=== PATIENT | male | born 1990 | race African-American/Black ===

== ENCOUNTER 2019-04-24 15:05 | Emergency (ER) | payer OTHER ==
[~2019-04-24] VITALS: Ht 172.7 cm; Wt 83.9 kg
[2019-04-24] MEDS ORDERED: NKM (15:26)
[2019-04-24 15:40] VITALS: BP 140/90
--- NOTE | 2019-04-24 15:40 | NUR ---
ED Nurse Note: pt came in due to laceration on right 5th digit and almost syncope x3 happend at 12nn. pt stated he was lifting a rim and fell down on his finger and when he saw blood he alost fainted x 3. seen by kendal de la torre. ill continue to monitor.
--- NOTE | 2019-04-24 15:50 | NUR ---
ED Nurse Note: wound cleansed with ns, iv started on pt left ac, blood drawn and sent to lab, pt able to give urine sample, ivf started. pt vss. will continue to monitor.
[2019-04-24 16:08] LABS: APPEARANCE,URINE CLEAR; BILIRUBIN, URINE NEGATIVE (NEGATIVE); COLOR,URINE PALE YELLOW; GLUCOSE, URINE (UA) NEGATIVE (NEGATIVE); KETONES,URINE NEGATIVE (NEGATIVE); LEUKOCYTE ESTERASE ,URINE NEGATIVE (NEGATIVE); NITRITE,URINE NEGATIVE (NEGATIVE); PH,URINE 8 (4.5-8.0); PROTEIN,URINE NEGATIVE (NEGATIVE); UROBILINOGEN,URINE NORMAL MG/DL (0.0-1.0)
[2019-04-24 16:10] LABS: ANION GAP 7 mmol/L (5-15); BLOOD UREA NITROGEN 13 mg/dL (7-18); CALCIUM 9.2 MG/DL (8.5-10.1); CARBON DIOXIDE 31 MMOL/L (21-32); CHLORIDE 103 MMOL/L (98-107); CREATININE 1.1 MG/DL (0.55-1.30); POTASSIUM 4.3 MMOL/L (3.5-5.1); SODIUM 141 MMOL/L (136-145)
[2019-04-24 16:12] LABS: BASOPHILS % (AUTO) 1.1 % (0.0-2.0); EOSINOPHILS % (AUTO) 0.4 % (0.0-3.0); HEMATOCRIT 48.1 % (42.0-52.0); HEMOGLOBIN 16.5 G/DL (14.2-18.0); LYMPHOCYTES % (AUTO) 20.9 % (20.0-45.0); MEAN CORPUSCULAR VOLUME 83 FL (80-99); NEUTROPHILS % (AUTO) 71.5 % (45.0-75.0); PLATELET COUNT 367 K/UL (150-450); RED CELL DISTRIBUTION WIDTH 10.7 % (11.6-14.8); WHITE BLOOD COUNT 8.9 K/UL (4.8-10.8)
[2019-04-24 16:26] LABS: ALANINE AMINOTRANSFERASE 73 U/L (12-78); ALBUMIN 4.9 G/DL (3.4-5.0); ALBUMIN/GLOBULIN RATIO 1.5 (1.0-2.7); ALKALINE PHOSPHATASE 63 U/L (46-116); ASPARTATE AMINO TRANSFERASE 29 U/L (15-37); BILIRUBIN,TOTAL 1.2 MG/DL (0.2-1.0); CKMB 0.7 NG/ML (0.0-3.6); CREATINE KINASE 244 U/L (26-308)
[2019-04-24 16:30] LABS: BILIRUBIN,DIRECT 0.2 MG/DL (0.0-0.3)
[2019-04-24 17:41] VITALS: BP 136/88
--- NOTE | 2019-04-24 18:04 | Emergency Room Report ---
History of Present Illness General Chief Complaint: Syncope Source: Patient (Maxi Bhakta) Present Illness HPI 28-year-old male with no significant past medical history here complaining of pain and bleeding from his chills after he smashed his finger at work. [place] faint and almost fell after injury however denies any preceding dizziness, headache, chest pain, shortness of breath, palpitation prior to the injury and leading to syncope prior to being injured. Patient denies head trauma no loss of consciousness and said that he was stopped from falling by his coworker. Denies any medication intake, drug use, alcohol intake. Patient reports that he keeps hydrated at work. Rating his pain in his finger 3 out of 10 without radiation. Patient has had prior fracture and surgery to the same finger. Has not taken medication or done any other alleviating factors. Denies urinary symptoms, hematuria. Appears stable with stable vital signs.. Denies headache and dizziness (Maxi Bhakta) Allergies: Coded Allergies: No Known Allergies (Unverified , 04/24/19) Patient History Past Medical History: see triage record Past Surgical History: unable to obtain Pertinent Family History: none Immunizations: UTD Reviewed Nursing Documentation: PMH: Agreed; PSxH: Agreed (Maxi Bhakta) Nursing Documentation-PMH Past Medical History: No Stated History (Maxi Bhakta) Review of Systems All Other Systems: negative except mentioned in HPI (Maxi Bhakta) Physical Exam Vital Signs Date Time Temp Pulse Resp B/P (MAP) Pulse Ox O2 Delivery O2 Flow Rate FiO2 04/24/19 15:21 98.1 66 19 150/91 (110) 100 Room Air Sp02 EP Interpretation: reviewed, normal General Appearance: normal inspection, well appearing, no apparent distress, alert, GCS 15 Head: normocephalic, atraumatic Eyes: bilateral eye normal inspection, bilateral eye PERRL ENT: normal ENT inspection, hearing grossly normal, normal pharynx Neck: normal inspection, full range of motion, supple Respiratory: normal inspection, chest non-tender, lungs clear, normal breath sounds, no respiratory distress, no wheezing Cardiovascular #1: normal inspection, normal peripheral pulses, regular rate, rhythm, no murmur, normal capillary refill Gastrointestinal: normal inspection, non tender, soft, no mass, no guarding Rectal: deferred Genitourinary: no CVA tenderness Musculoskeletal: back normal, digits/nails normal, other - 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 Neurologic: normal inspection, alert, oriented x3, responsive Psychiatric: normal inspection, judgement/insight normal, memory normal Skin: palpation normal, laceration - Laceration to the dermis of right material handler 2nd shift digit Lymphatic: normal inspection, no adenopathy (Maxi Bhakta) Procedures Laceration/Wound Repair Laceration/Wound Repair : Consent: Verbal Wound Location: upper extremity Wound's Depth, Shape: superficial Wound Length (cm): 1 Wound Explored: no foreign body removed Betadine Prep?: Yes Anesthesia: 1% Lidocaine Volume Anesthetic (ccs): 5 Wound Debrided: minimal Wound Repaired With: sutures Suture Size/Type: 5:0 Number of Sutures: 5 Layer Closure?: Yes Splint Applied?: Yes Type of Splint Applied: metal Sling Applied?: No Patient Tolerated: Well Complications: None (Maxi Bhakta) Medical Decision Making PA Attestation Diagnosis and treatment plans were reviewed and discussed with my supervising physician Dr. Moon (Maxi Bhakta) Medicare Attestation I discussed the care with Maxi KAPADIA on 04/24/2019. I agree with the findings and plan as documented in the note. (Prabhu Moon M.D.) Diagnostic Impression: Primary Impression: Finger laceration Additional Impression: Syncope, vasovagal ER Course 28-year-old male with no significant past medical history here complaining of pain and bleeding from his chills after he smashed his finger at work. [place] faint and almost fell after injury however denies any preceding dizziness, headache, chest pain, shortness of breath, palpitation prior to the injury and leading to syncope prior to being injured. Patient denies head trauma no loss of consciousness and said that he was stopped from falling by his coworker. Denies any medication intake, drug use, alcohol intake. Patient reports that he keeps hydrated at work. Rating his pain in his finger 3 out of 10 without radiation. Patient has had prior fracture and surgery to the same finger. Has not taken medication or done any other alleviating factors. Denies urinary symptoms, hematuria. Appears stable with stable vital signs.. Denies headache and dizziness Ddx considered but are not limited to : Superficial laceration, deep laceration , tendon involvement with laceration, laceration with foreign body, secondary to cardiac, syncope secondary to electrolyte abnormality, vasovagal syncope Vital signs: are WNL, pt. is afebrile H&PE are most consistent with: Deep laceration to dermis, vasovagal syncope ORDERS: CBC, CMP, cardiac work-up, ED INTERVENTIONS: Laceration repair, IV fluids DISCHARGE: At this time pt. is stable for d/c to home. Will provide printed patient care instructions, and any necessary prescriptions. Care plan and follow up instructions have been discussed with the patient prior to discharge. Patient to follow-up with a primary care provider return to emergency room or go to primary for removal of sutures in 7 days avoid strenuous physical activity see primary care provider for further investigation of syncope continue at this time due to normal vital signs as well as blood work patient to be discharged with diagnosis of vasovagal syncope (Maxi Bhakta) EKG Diagnostic Results Rate: bradycardiac Rhythm: NSR ST Segments: no acute changes Other Impression Bradycardia noted however no other acute changes (Maxi Bhakta) Chest X-Ray Diagnostic Results Chest X-Ray Diagnostic Results : Chest X-Ray Ordered: Yes # of Views/Limited/Complete: 1 View Indication: Chest Pain EP Interpretation: Yes PA Xray: Interpretation reviewed, by supervising MD, and agrees with findings. Interpretation: no consolidation, no effusion, no pneumothorax Impression: No acute disease Electronically Signed by: Maxi Mustafa PA-C) Other X-Ray Diagnostic Results Other X-Ray Diagnostic Results : X-Ray ordered: Hand x-ray # of Views/Limited Vs Complete: 3 View Indication: Pain EP Interpretation: Yes PA Xray: Interpretation reviewed, by supervising MD, and agrees with findings. Interpretation: no dislocation, no soft tissue swelling, no fractures Impression: No acute disease Electronically Signed by: Maxi Mustafa PA-C) Last Vital Signs Date Time Temp Pulse Resp B/P (MAP) Pulse Ox O2 Delivery O2 Flow Rate FiO2 04/24/19 17:41 60 23 136/88 99 Room Air 04/24/19 15:40 98.1 (Maxi Bhakta) Disposition: HOME, SELF-CARE Condition: Stable Scripts Ibuprofen* (MOTRIN*) 600 Mg Tablet 600 MG ORAL FOUR TIMES A DAY, #30 TAB 0 Refills Prov: Maxi Bhakta 04/24/19 Cephalexin* (KEFLEX*) 500 Mg Capsule 500 MG ORAL EVERY 6 HOURS for 7 Days, #28 CAP Prov: Maxi Bhakta 04/24/19 Referrals: NOT CHOSEN IPA/,REFERRING (PCP) Patient Instructions: Laceration Care, Adult, Syncope Additional Instructions: Sutures to be removed in 7 days follow-up with primary care provider if worsening symptoms return to the emergency room Maxi Bhakta Apr 24, 2019 18:03 Prabhu Moon M.D. Apr 25, 2019 11:23
[2019-04-24] MEDS ORDERED: CEPHALEXIN500 MG ORAL (18:05)
[2019-04-24] MEDS ORDERED: IBUPROFEN600 MG ORAL (18:05)
[2019-04-24] MEDS ORDERED: Bacitracin Oint UD TOPIC ONE ×2 (18:24→18:30)
[2019-04-24 18:25] VITALS: BP 136/88
--- NOTE | 2019-04-24 18:25 | NUR ---
ER DISCHARGE NOTE: Patient is cleared to be discharged per ERMD, pt is aox4, on room air, with stable vital signs. pt was given dc and prescription instructions, pt was able to verbalize understanding, pt id band and iv site removed without complications. pt is able to ambulate with steady gait. pt took all belongings.
--- NOTE | 2019-04-25 14:30 | Diagnostic Imaging Report ---
Indication: Dyspnea Comparison: None A single view chest radiograph was obtained. Findings: Cardiomediastinal appearance is within normal limits for age. The lungs are clear. Pulmonary vascularity is appropriate. The diaphragmatic contour is smooth and costophrenic angles are sharp. No pleural effusions are identified. The bones are unremarkable. Impression: No acute findings
--- NOTE | 2019-04-25 14:30 | Diagnostic Imaging Report ---
Indication: pain in finger. trauma Findings: 3 views of the right fifth finger were obtained. No acute fractures, malalignment, erosions, or periosteal reaction are seen. Soft tissues are unremarkable. Impression: No acute findings.
== END 2019-04-24 18:25 | disposition home or self-care (01) ==
LOC: EMR 15:42
DX: S61.216A Laceration without foreign body of right little finger without damage to nail, initial encounter (principal); W23.0XXA Caught, crushed, jammed, or pinched between moving objects, initial encounter; Y92.9 Unspecified place or not applicable; Y99.0 Civilian activity done for income or pay; R55 Syncope and collapse
CPT/HCPCS: 36415; 71045; 73140; 80053; 80307; 81001; 82248; 82550; 82553; 84484; 85025; 93005; 96360; 99284; G0480; 80329